=== PATIENT | male | born 1990 | race Hispanic/Latino ===

== ENCOUNTER 2022-07-14 15:55 | Emergency (ER) | payer SELFPAY ==
[~2022-07-14] VITALS: Ht 170.2 cm; Wt 83.9 kg
[2022-07-14] MEDS ORDERED: FAMOTIDINE 20 MG/2 ML VIAL IV STA (16:19)
[2022-07-14] MEDS ORDERED: DIPHENHYDRAMINE HCL INJ 50 MG/ML VIAL IV ONE (16:30)
[2022-07-14] MEDS ORDERED: SODIUM CHLORIDE 0.9% 1000ML 1,000 ML IV ONE (16:30)
[2022-07-14] MEDS ORDERED: METHYLPREDNISOLONE SOD SUCC 125 MG/2ML VIAL IV ONE (16:30)
[2022-07-14] MEDS ORDERED: DECADRON4 M1 PO (17:58)
== END 2022-07-14 19:35 | disposition home or self-care (01) ==
LOC: ER 16:00
DX: L23.7 Allergic contact dermatitis due to plants, except food (principal)
CPT/HCPCS: 99283

== ENCOUNTER 2022-09-15 17:26 | Emergency (ER) | payer SELFPAY ==
[~2022-09-15] VITALS: Ht 170.2 cm; Wt 83.9 kg
[~2022-09-15 17:26] MED LIST: DECADRON4 M1 PO
== END 2022-09-15 17:45 | disposition home or self-care (01) ==
LOC: ER 17:30
DX: Z48.02 Encounter for removal of sutures (principal)
CPT/HCPCS: 99282